=== PATIENT | female | born 1960 | race Two or more races ===

== ENCOUNTER 2021-01-18 14:12 | Emergency (ER) | payer BC, OTHER ==
[~2021-01-18] VITALS: Ht 152.4 cm; Wt 72.6 kg
[2021-01-18 18:45] VITALS: BP 168/68
[2021-01-18] MEDS ORDERED: KETOROLAC TROMETH 60MG/2ML VIAL IM ONE (19:15)
[2021-01-18] MEDS ORDERED: methylPREDNISolone SOD SUCC 125 MG/2 ML VL IM ONE (19:15)
== END 2021-01-18 20:16 | disposition home or self-care (01) ==
LOC: ER 14:13
DX: S52.502A Unspecified fracture of the lower end of left radius, initial encounter for closed fracture (principal); S52.602A Unspecified fracture of lower end of left ulna, initial encounter for closed fracture; E66.9 Obesity, unspecified; I10 Essential (primary) hypertension; Z68.31 Body mass index [BMI] 31.0-31.9, adult; Z90.89 Acquired absence of other organs; W07.XXXA Fall from chair, initial encounter; Y93.39 Activity, other involving climbing, rappelling and jumping off; Y92.89 Other specified places as the place of occurrence of the external cause; Y99.8 Other external cause status
CPT/HCPCS: 29125; 73110; 96372; 99284; J1885; J2930